=== PATIENT | male | born 1950 | race Caucasian/White ===

== ENCOUNTER → 2016-07-07 | Outpatient (CLI) | payer MEDICARE, OTHER ==
--- NOTE | 2016-07-07 14:58 | RADIOLOGY REPORT PS360 ---
CT CHEST W/ CONTRAST INDICATION: Tobacco use, abnormal chest x-ray ABNORMALALITY FO LUNG SEEN ON CXR ORDERING PHYSICIAN: Ken Corrales MD PATIENT AGE: 65 years COMPARISON: Radiograph of 05/26/2016 TECHNIQUE: Axial images are obtained following the intravenous administration of 75 mL's of Isovue-370 contrast. Sagittal and coronal reformatted images are reviewed as well. FINDINGS: No mediastinal mass or adenopathy evident. No evidence of aortic aneurysm, aortic dissection, or central pulmonary embolus. There are few calcified nodes in the hilum. Coronary artery calcifications are also present There are moderate centrilobular emphysematous changes with a few scattered areas of fibrosis. There is calcified granuloma in the right upper lobe and one in the right middle lobe. There is mild diffuse bronchial thickening the radiographic abnormality corresponds to overlapping vessels in the right suprahilar region There is a 5 mm noncalcified nodule in the right upper lobe laterally and a 3 mm noncalcified nodule in the right upper lobe centrally. 3 mm noncalcified nodule posterior right upper lobe posteriorly. Fibrotic changes are present in the left upper lobe laterally. 4 mm nodule is present in the left upper lobe anteriorly. There are a few fissural nodules on the left which are 3 to 4 mm likely benign. Upper abdominal images are unremarkable. IMPRESSION: 1. Bilateral noncalcified pulmonary nodules ranging in size from 2 to 5 mm as detailed above. 6 month follow-up recommended. 2. Radiographic an about a corresponds to vessel overlap accentuated by surrounding emphysematous change 3. 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
== END ==
LOC: RAD 10:22
DX: R91.8 Other nonspecific abnormal finding of lung field (principal)
CPT/HCPCS: Q9967